=== PATIENT | male | born 1975 | race Caucasian/White ===

== ENCOUNTER 2018-10-16 16:11 | Inpatient (IN) ==
[2018-10-16] MEDS ORDERED: Aspirin 325 MG TABLET PO ONE (16:32)
[2018-10-16] MEDS ORDERED: *HR* LORazepam 2 MG/ML VIAL IVP ONE (16:44)
--- NOTE | 2018-10-16 16:44 | Emergency Department Note ---
Disposition Clinical Impression: ST elevation myocardial infarction (STEMI) Qualifiers: Involved coronary artery: right coronary artery Qualified Code(s): I21.11 - ST elevation (STEMI) myocardial infarction involving right coronary artery Disposition: Admitted As Inpatient Condition: Fair Time of Disposition: 21:04 Chest Pain HPI - General Chief Complaint: ED Chest Pain Stated Complaint: CP Time Seen by Provider: 10/16/18 16:20 Source: patient, family Limitations: no limitations Vital Signs Reviewed: Yes Nursing Notes Reviewed: Yes - History of Present Illness HPI Narrative: 43-year-old male presents from home for evaluation of chest pain. Onset 1 AM. Intermittent. Last for approximately 15 minutes before spontaneously resolving. This occurs at rest as well as with light exertion. Patient describes a pinching sensation in the mid sternum as well as bilateral chest ward. He has never had similar symptoms area he notes that he does have a history of anxiety however, his anxiety feels different on different occasions and he cannot tie his symptoms today to feelings of prior panic attacks. PMH: Hypertension, anxiety. Habits: Occasional rare smoker; 3-4 cigarettes per week. No family history of CT intermediate phone numbers under the age of 65. ROS: Positive: As above Negative: Fevers, chills, nausea, vomiting, palpitations, shortness of breath, diaphoresis. Severity scale (1-10): 5 - Related Data Home Medications Medication Instructions Recorded Confirmed Metoprolol XL (24 HR) Succ [Toprol 50 mg PO DAILY 10/16/18 10/16/18 XL] Pantoprazole Sodium [Protonix] 40 mg PO DAILY 10/16/18 10/16/18 Allergies Allergy/AdvReac Type Severity Reaction Status Date / Time aspirin Allergy See Verified 10/16/18 16:15 Comments atenolol Allergy See Verified 10/16/18 16:15 Comments All systems ED: reviewed and negative except as stated. Review of Systems: As Per HPI Chest Pain PMH - Past Medical History Medical history: Reports: hypertension Psychiatric history: Reports: anxiety, panic disorder - Social History Smoking Status: Current some day smoker Alcohol use: Reports: occasionally Drug use: Reports: none Physical Exam Vital Signs Reviewed General: Patient is alert, oriented, and in no acute distress. Head: atraumatic, normocephalic Eye: normal appearance, PERRL, EOMI, no scleral icterus, no conjunctival injection. Xanthomas present on bilateral upper eyelids. ENT: mucous membranes moist, normal external ear exam Neck: normal inspection, trachea midline, full ROM Chest: normal inspection, symmetric chest rise Respiratory: Good respiratory effort. Bilateral breath sounds are clear without wheezing, crackles, or rhonchi. Cardiovascular: Tachycardic rate and regular rhythm. No clicks, rubs, gallops, or murmors. Normal heart sounds. No pedal edema. Abdomen: Bowel sounds present normoactive. Abdomen is soft, nondistended, and nontender. No guarding or rebound. Musculoskeletal: Spontaneously moving all extremities. Skin: warm, dry, intact. Neuro: GCS 15. Alert and oriented x4. Sensation light touch intact. Psych: Patient's affect is appropriate for situation. - General Limitations: no limitations General appearance: alert, in no apparent distress Course Course Narrative: We will perform chest pain workup. Initial EKG is concerning for possible ischemic changes. Will provide aspirin. Discussed with patient in detail the meaning of an EKG as well as cardiac enzymes and the need for continued observation. If needed, he is agreeable to admission to the hospital for chest pain rule out ACS. Serum hematology is clinically unremarkable. Serum chemistries returned with elevated troponin. STEMI alert called. 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 EKG #1 EKG dated 10/16/2018 at 16:22 interpreted as sinus tachycardia with a rate of 131. CT 135, QRS 107, QTC 460. Normal axis. Concerning for inferior lateral ST elevation with with precordial ST depression. No previous EKG for comparison. EKG #2 EKG #2 dated 10/16/2018 at 16:[address] elevation with precordial ST depression. EKG #3 EKG dated 10/16/2018 at 17:[address] elevation slightly higher than EKG #2 above. I discussed the above in detail with the patient and his bedside. They understand the need to go to [employer] Mechanic and had no additional questions or concerns at this time. Vital Signs Temperature 97.4 F L 10/16/18 16:15 Pulse Rate 130 10/16/18 16:15 Respiratory Rate 20 10/16/18 16:15 Blood Pressure 171/101 10/16/18 16:15 O2 Sat by Pulse Oximetry 98 10/16/18 16:15 Temperature 98.3 F 10/16/18 19:23 Pulse Rate 77 12/12/18 20:00 Respiratory Rate 16 10/16/18 20:00 Blood Pressure 102/64 10/16/18 20:00 O2 Sat by Pulse Oximetry 94 10/16/18 20:00 Oxygen Delivery Oxygen Delivery Room Air Chest Pain - Lab Data Result diagrams: 10/16/18 17:32 10/16/18 16:27 Lab Results 10/16/18 10/16/18 10/16/18 Range/Units 16:27 16:27 16:27 WBC 14.8 H (4.3-11.1) K/mcL RBC 4.88 (4.19-5.50) M/mcL Hgb 15.9 (12.9-16.9) g/dL Hct 47.1 (37.5-50.1) % MCV 96.5 (83.0-100.0) fL MCH 32.6 (28.0-33.3) pg MCHC 33.8 (31.6-35.5) g/dL RDW 12.1 (11.5-14.5) % Plt Count 371 (140-400) K/mcL MPV 8.9 L (9.4-12.4) fL Immature Gran % 0.3 (0-4) % Seg Neutrophils % 70.9 % Lymphocytes % 17.5 % Monocytes % 10.7 % Eosinophils % 0.3 % Basophils % 0.3 % Neutrophils # 10.5 H (1.6-8.9) K/mcL Lymphocytes # 2.6 (0.6-4.6) K/mcL Monocytes # 1.6 H (0.0-1.3) K/mcL Eosinophils # 0.0 (0.0-0.6) K/mcL Basophils # 0.0 (0.0-0.2) K/mcL PT 11.6 (9.4-12.1) Seconds INR 1.0 Heparin Anti-Xa, Unfract 0.04 L (0.30-0.70) IU/mL Sodium 135 L (136-145) mEq/L Potassium 3.8 (3.5-5.1) mEq/L Chloride 99 (98-107) mEq/L Carbon Dioxide 25 (23-29) mEq/L BUN 17 (6-20) mg/dL Creatinine 0.87 (0.70-1.30) mg/dL Est GFR ( Amer) > 60 (> 60) Est GFR (Non-Af Amer) > 60 (> 60) BUN/Creatinine Ratio 20 (6-26) Glucose 131 H (70-105) mg/dL Calculated Osmolality 283 (280-300) Calcium 10.0 (8.6-10.3) mg/dL Troponin I 10.34 H* (< 0.04) ng/mL 10/16/18 Range/Units 17:32 WBC 12.8 H (4.3-11.1) K/mcL RBC 4.75 (4.19-5.50) M/mcL Hgb 15.5 (12.9-16.9) g/dL Hct 45.7 (37.5-50.1) % MCV 96.2 (83.0-100.0) fL MCH 32.6 (28.0-33.3) pg MCHC 33.9 (31.6-35.5) g/dL RDW 11.9 (11.5-14.5) % Plt Count 346 (140-400) K/mcL MPV 9.2 L (9.4-12.4) fL Immature Gran % (0-4) % Seg Neutrophils % % Lymphocytes % % Monocytes % % Eosinophils % % Basophils % % Neutrophils # (1.6-8.9) K/mcL Lymphocytes # (0.6-4.6) K/mcL Monocytes # (0.0-1.3) K/mcL Eosinophils # (0.0-0.6) K/mcL Basophils # (0.0-0.2) K/mcL PT (9.4-12.1) Seconds INR Heparin Anti-Xa, Unfract (0.30-0.70) IU/mL Sodium (136-145) mEq/L Potassium (3.5-5.1) mEq/L Chloride (98-107) mEq/L Carbon Dioxide (23-29) mEq/L BUN (6-20) mg/dL Creatinine (0.70-1.30) mg/dL Est GFR ( Amer) (> 60) Est GFR (Non-Af Amer) (> 60) BUN/Creatinine Ratio (6-26) Glucose (70-105) mg/dL Calculated Osmolality (280-300) Calcium (8.6-10.3) mg/dL Troponin I (< 0.04) ng/mL Heart Score - Score History: Slightly Suspicious EKG: Significant ST-Depression Age: Less than 45 Risk Factors: Equal/Greater than 3 risk factor or history of atherosclerotic disease Troponin: Greater than 3x normal limit HEART Score Total: 6
[2018-10-16 16:46] LABS: Basophils % 0.3 %; Eosinophils % 0.3 %; Hematocrit 47.1 % (37.5-50.1); Hemoglobin 15.9 g/dL (12.9-16.9); Immature Granulocytes % 0.3 % (0-4); Lymphocytes # 2.6 K/mcL (0.6-4.6); Lymphocytes % 17.5 %; Mean Corpuscular HGB Conc 33.8 g/dL (31.6-35.5); Mean Corpuscular Hemoglobin 32.6 pg (28.0-33.3); Mean Corpuscular Volume 96.5 fL (83.0-100.0); Mean Platelet Volume 8.9 fL (9.4-12.4); Monocytes # 1.6 K/mcL (0.0-1.3); Monocytes % 10.7 %; Neutrophils # 10.5 K/mcL (1.6-8.9); Platelet Count 371 K/mcL (140-400); Red Blood Count 4.88 M/mcL (4.19-5.50); Red Cell Distribution Width 12.1 % (11.5-14.5); Segmented Neutrophils % 70.9 %
[2018-10-16 16:56] LABS: BUN/Creatinine Ratio 20 (6-26); Blood Urea Nitrogen 17 mg/dL (6-20); Carbon Dioxide 25 mEq/L (23-29); Chloride 99 mEq/L (98-107); Glucose 131 mg/dL (70-105); Osmolality,Calculated 283 (280-300); Potassium 3.8 mEq/L (3.5-5.1); Prothrombin Time 11.6 Seconds (9.4-12.1); Sodium 135 mEq/L (136-145); eGFR For Non-African Americans > 60 (> 60)
[2018-10-16 17:08] LABS: Troponin I 10.34 ng/mL (< 0.04)
[2018-10-16] MEDS ORDERED: *HR* Morphine 2 MG/ML SYRINGE IVP ONE (17:13)
--- NOTE | 2018-10-16 17:13 | Emergency Department Note ---
Disposition Clinical Impression: ST elevation myocardial infarction (STEMI) Qualifiers: Involved coronary artery: unspecified coronary artery Qualified Code(s): I21.3 - ST elevation (STEMI) myocardial infarction of unspecified site Disposition: Still a Patient Forms: ED Satisfaction Letter General Adult HPI - General Chief complaint: ED Chest Pain Stated complaint: CP Time Seen by Provider: 10/16/18 16:20 Source: patient, family Limitations: no limitations Nursing Notes Reviewed: Yes Vital Signs Reviewed: Yes - History of Present Illness HPI Narrative: Attestation note: Patient was seen with the emergency medicine resident/nurse practitioner/physician podiatric assistant/transitional resident/medical student: Dr. Alonso Enriquez I have personally performed a face to face evaluation on this patient. I have reviewed and agree with history and physical examination patient management and disposition. Briefly the salient points of the case are as follows: 43-year-old male intermittent smoker high blood pressure presents the ER with intermittent chest pain which feels like "pins and needles" across bilateral chest wall without radiation denies nausea or vomiting or shortness of breath. No prior history of CAD or stents. No family history. Patient an EKG which showed some ST elevation possibly in 2 and 3 however no reciprocal changes no old EKG available for comparison. We repeated one after about 2530 minutes was unchanged. Patient we just had a critical troponin come back at 10+ interventional cardiology is being paged this is either STEMI for a recent IA. Patient will get history gotten Plavix will be getting nitroglycerin and morphine. Providing 45 minutes critical care services to this patient with admission anticipated, possible Digital Program Manager disposition pending Pain Scale: 4 - Related Data Allergies Allergy/AdvReac Type Severity Reaction Status Date / Time aspirin Allergy See Verified 10/16/18 16:15 Comments atenolol Allergy See Verified 10/16/18 16:15 Comments Past Medical History - Past Medical History Medical history: Reports: hypertension Psychiatric history: Reports: anxiety, panic disorder - Social History Smoking Status: Current some day smoker Smokeless Tobacco Status: No Alcohol use: Reports: occasionally Drug use: Reports: none Physical Exam - General Limitations: no limitations General appearance: alert, in no apparent distress Course Vital Signs Temperature 97.4 F L 10/16/18 16:15 Pulse Rate 130 10/16/18 16:15 Respiratory Rate 20 10/16/18 16:15 Blood Pressure 171/101 10/16/18 16:15 O2 Sat by Pulse Oximetry 98 10/16/18 16:15 Temperature 97.4 F L 10/16/18 16:20 Pulse Rate 126 10/16/18 16:59 Respiratory Rate 21 10/16/18 16:59 Blood Pressure 165/96 10/16/18 16:59 O2 Sat by Pulse Oximetry 96 10/16/18 16:59 Oxygen Delivery Oxygen Delivery Room Air Medical Decision Making - Lab Data Result diagrams: 10/16/18 16:27 10/16/18 16:27 Lab Results 10/16/18 10/16/18 10/16/18 Range/Units 16:27 16:27 16:27 WBC 14.8 H (4.3-11.1) K/mcL RBC 4.88 (4.19-5.50) M/mcL Hgb 15.9 (12.9-16.9) g/dL Hct 47.1 (37.5-50.1) % MCV 96.5 (83.0-100.0) fL MCH 32.6 (28.0-33.3) pg MCHC 33.8 (31.6-35.5) g/dL RDW 12.1 (11.5-14.5) % Plt Count 371 (140-400) K/mcL MPV 8.9 L (9.4-12.4) fL Immature Gran % 0.3 (0-4) % Seg Neutrophils % 70.9 % Lymphocytes % 17.5 % Monocytes % 10.7 % Eosinophils % 0.3 % Basophils % 0.3 % Neutrophils # 10.5 H (1.6-8.9) K/mcL Lymphocytes # 2.6 (0.6-4.6) K/mcL Monocytes # 1.6 H (0.0-1.3) K/mcL Eosinophils # 0.0 (0.0-0.6) K/mcL Basophils # 0.0 (0.0-0.2) K/mcL PT 11.6 (9.4-12.1) Seconds INR 1.0 Sodium 135 L (136-145) mEq/L Potassium 3.8 (3.5-5.1) mEq/L Chloride 99 (98-107) mEq/L Carbon Dioxide 25 (23-29) mEq/L BUN 17 (6-20) mg/dL Creatinine 0.87 (0.70-1.30) mg/dL Est GFR ( Amer) > 60 (> 60) Est GFR (Non-Af Amer) > 60 (> 60) BUN/Creatinine Ratio 20 (6-26) Glucose 131 H (70-105) mg/dL Calculated Osmolality 283 (280-300) Calcium 10.0 (8.6-10.3) mg/dL Troponin I 10.34 H* (< 0.04) ng/mL
[2018-10-16] MEDS ORDERED: *HR* Heparin 5,000 UNIT/ML VIAL IVP PRN ×2 (17:19)
[2018-10-16] MEDS ORDERED: *HR* Heparin 5,000 UNIT/ML VIAL IVP ONE (17:19)
[2018-10-16] MEDS ORDERED: Heparin 25,000 UNIT/500 ML D5W 25,000 UNIT/500 ML BAG IVC ONE (17:25)
[2018-10-16 17:28] LABS: Heparin anti-factor XA UFH 0.04 IU/mL (0.30-0.70)
[2018-10-16] MEDS ORDERED: Heparin 25,000 UNIT/500 ML D5W 25,000 UNIT/500 ML BAG IVC SCH (17:30)
[2018-10-16] MEDS: Nitroglycerin 0.4 MG TAB.SUBL SL PRN ×4 (17:44→19:41)
[2018-10-16 17:47] LABS: Hematocrit 45.7 % (37.5-50.1); Hemoglobin 15.5 g/dL (12.9-16.9); Mean Corpuscular HGB Conc 33.9 g/dL (31.6-35.5); Mean Corpuscular Hemoglobin 32.6 pg (28.0-33.3); Mean Corpuscular Volume 96.2 fL (83.0-100.0); Mean Platelet Volume 9.2 fL (9.4-12.4); Platelet Count 346 K/mcL (140-400); Red Blood Count 4.75 M/mcL (4.19-5.50); Red Cell Distribution Width 11.9 % (11.5-14.5)
[2018-10-16] MEDS ORDERED: *HR* Heparin 10,000 UNIT/10 ML VIAL ONE (18:09)
[2018-10-16] MEDS ORDERED: Heparin 1,000 UNITS/500 mL 500 ML ONE (18:09)
[2018-10-16] MEDS ORDERED: 0.9 % Sodium Chloride 1,000 ML ONE (18:09)
[2018-10-16] MEDS ORDERED: Nitroglycerin 1,000 MCG/10 ML VIAL IV ONE (18:09)
[2018-10-16] MEDS ORDERED: ISOVUE-370 200 ML INFUS..BTL ONE ×2 (18:09→18:33)
[2018-10-16] MEDS ORDERED: *HR* Atropine Sulfate 1 MG/10 ML SYRINGE ONE ×2 (18:49→21:04)
--- NOTE | 2018-10-16 19:23 | Invasive Diagnostic Lab Proc ---
Name: Keaton Diego Date of Study: 10/16/2018 Date: 1975 Ht: 66.0in Medical Record#: [id number] Age: 43 Wt: 249.12lb Gender: Male BSA: 2.2 Order #: [id number] BMI: 40.21 Physicians Procedure Physician: Anthony Riley DO Referring MD: Referring MD: Staff Name Position Time In Sites, Emani RT (R) Monitor 06:23 PM Roosevelt Treadwell RT (R) Scrub 06:23 PM Bryan Carlton RN Smoke Control Supervisor 06:23 PM Indications Indication STEMI Procedures Performed Procedure PRQ CARD REVASC MD 1 VSL L HRT ARTERY/VENTRICLE ANGIO Pre-Procedure Checklist Informed consent is complete signed and on chart. H&P is on chart. ID band is on and ID verified with patient. Patient NPO for procedure The procedure was described for the patient and questions were answered. Blood Pressure: 144/92 ECG is on chart. Rhythm: Sinus Tachycardia Plan of Care Patient will tolerate the procedure without complications. Adequate level of comfort will be maintained. Hemodynamics will remain stable Patient will recover from procedure without complications. Respiratory function will be maintained. Cardiac rhythm will remain stable. Patient temperature will be maintained. Patient and/or family have verbalized understanding of the procedure. Patient Education Chief Complaint/Reason for Test: Cardiac Cath Developmental Category: Adult (18-64 years) Developmentally Appropriate for Age: Yes Learning Barriers: None Education Needs: Procedure Education Method: Verbal Information Taught: Cardiac Cath Educational Evaluation: Able to repeat information Intravenous Access Time IV Size Location DC'd Fluid/Drip Rate Units RN 18g 1 1/" Patent On Arrival 18g 1 14" Patent On Arrival Allergies No Known Allergies aspirin atenolol Vital Signs Time BP (mmHg) HR (bpm) O2 Sat. RR (bpm) LOC 06:34 PM / % 5 = Fully awake and oriented or at pre-proc level 06:35 PM 144 / 92 121 100 % 17 06:39 PM 131 / 96 124 99 % 12 06:44 PM 138 / 93 122 99 % 12 06:49 PM 145 / 94 119 98 % 11 06:55 PM 96 / 48 63 97 % 11 06:57 PM 95 / 51 64 98 % 10 06:59 PM 103 / 49 62 97 % 8 07:05 PM 159 / 84 85 96 % 22 Procedural Medications Time Medication Dose Units Method Given By 06:31 PM Oxygen 2 L/min nasal cannula Bryan Carlton RN 06:34 PM Lidocaine 2% 10 ml Subcutaneous Anthony Riley DO 06:49 PM Heparin 3000 units Intravenous Bryan Carlton RN 06:55 PM Dopamine 5 mcg/kg/min Intravenous Bryan Carlton RN 06:58 PM Dopamine 10 mcg/kg/min Intravenous Bryan Carlton RN 06:58 PM 0.9NaCl 500 bolus Intravenous Bryan Carlton RN 07:04 PM Dopamine 5 mcg/kg/min Intravenous Bryan Carlton RN ASA Classification: Emergent Procedure: ASA score is assumed Mikie Score Preprocedure Postprocedure Activity 2- Moves 4 extremities sustained head lift Activity 2- Moves 4 extremities sustained head lift Circulation 2- SBP +/= 20 points of pre-anesthetic level Circulation 2- SBP +/= 20 points of pre-anesthetic level Consciousness 2- Awake and alert oriented x 3 Consciousness 2- Awake and alert oriented x 3 O2 Saturation 2- Able to maintain O2 satruation of 92% on room air O2 Saturation 2- Able to maintain O2 satruation of 92% on room air Respiratory 2- Able to deep breathe and cough well Respiratory 2- Able to deep breathe and cough well Total Score 10 Total Score 10 Contrast Agent: Isovue Diagnostic Contrast: 100 ml Total Contrast: 100 ml Fluoro Dose: 6799 mGy Activated Clotting Time Time Seconds to Clot 06:40 PM 173 07:04 PM 374 Procedure Log Time Note Enter By 06:23 PM Andrew, Emani RT (R) Position: Monitor Time in: 18:23 tsites 06:23 PM Roosevelt Treadwell RT (R) Position: Scrub Time in: 18:23 tsites 06:24 PM Bryan Carlton RN Position: Smoke Control Supervisor Time in: 18:23 tsites 06:24 PM Patient charges- Angio tray pack, Navilyst 3mm J, Pulse Oximetry and ACIST tubing and transducer tsites 06:26 PM Pt arrived to laboratory asst 2 at 18:26 tsites 06:30 PM Recorded ECG: TK=635 Condition=Condition 1 06:30 PM CathStat 06:31 PM Case Delayed No tsites 06:31 PM Physician arrived 18:31 tsites 06:31 PM Procedure start 18:31 tsites 06:32 PM Time: 18:31 Oxygen on at 2 L/min per nasal cannula by Bryan Carlton RN tsites 06:32 PM Hair removed from procedure site in holding area using clippers. Bilateral groin prepped with Chloraprep by Emani Morales), then patient was draped. Skin intact. tsites 06:34 PM Time: 18:34 Patient comfortable and pain free: Yes tsites 06:34 PM Pressure channel 2 zeroed. 06:34 PM Vitals capture started with the following parameters, Patient=Adult, Interval=5 min, Initial Vynltlel=062 mmHg, Deflation Rate=5 mmHg, Cuff placed on Right Arm 06:34 PM Time: 18:34LOC: 5 = Fully awake and oriented or at pre-proc level tsites 06:34 PM Clinical Presentation: STEMI or equivalent tsites 06:34 PM Time out was performed according to hospital policy. Conscious sedation and anesthesia was achieved (see medication log with in this report above) tsites 06:34 PM Time: 18:34 10 ml Lidocaine 2% to right groin Subcutaneous Given by Anthony Riley DO tsites 06:34 PM Micro-Introducer Kit utilized for sheath placement tsites 06:34 PM Sheath exchanged for a 6 Fr 11 cm Terumo [place] sheath [id number] tsites 06:35 PM WH=376 bpm, USJP=107/92 mmhg, OxB2=139.0 %, Resp=17 B/min 06:38 PM ACT drawn tsites 06:39 PM LE=711 bpm, CJGT=220/96 mmhg, SpO2=99.0 %, Resp=12 B/min, EtCO2=33 mmHg 06:40 PM Recorded Pressure: Ao, EL=632, Condition=Condition 1 (Aorta) Ao -1/-1/-1 06:40 PM At 18:40 the ACT was 173 seconds. tsites 06:44 PM XL=579 bpm, CTXI=124/93 mmhg, SpO2=99.0 %, Resp=12 B/min, EtCO2=32 mmHg 06:45 PM 0.035 145cm Navilyst 3mmJ wire [id number] tsites 06:45 PM LCA angiography performed in multiple views. tsites 06:45 PM Recorded Pressure: Ao, ZD=686, Condition=Condition 1 (Aorta) Ao 114/73/91 06:45 PM 6Fr FL 4 catheter inserted over the wire DNC tsites 06:46 PM wire reinserted catheter removed tsites 06:46 PM 6Fr JR 4 [place] Bright-Tip guide catheter was used to cannulate the PCI vessel successfully. reused? No tsites 06:46 PM Inflation device was opened. tsites 06:47 PM Recorded Pressure: LV, NB=080, Condition=Condition 1 (Left Ventricle) LV 125/0/10 06:47 PM Recorded Pressure: LV, Ao, XO=709, Condition=Condition 1 (Left Ventricle) LV 129/-3/10, (Aorta) Ao 108/72/88 06:48 PM Recorded Pressure: Ao, TJ=156, Condition=Condition 1 (Aorta) Ao 120/83/99 06:48 PM RCA angiography performed in multiple views. tsites 06:48 PM Coronary Dominance: right tsites 06:48 PM Lesion found in Proximal RCA. Pre Stenosis: 100 Pre PANCHO Flow: 0: No Flow/No perfusion tsites 06:48 PM Right Coronary, Right Posterior Descending Arteries with Right Posterolateral and Acute Marginal branches with 100 % stenosis. If graft is supplying this area, 0 % stenosis tsites 06:49 PM Time: 18:49 Heparin 3000 units Intravenous Given by Bryan Carlton RN tsites 06:49 PM PCI Status Emergency tsites 06:49 PM .014 Stabilizer Extra Support 300cm guide wire across target lesion- successful. reused? No tsites 06:49 PM 3.0 mm x 15 mm Emerge Monorail balloon across target lesion- successful. reused? No tsites 06:49 PM UQ=564 bpm, JIWZ=016/94 mmhg, SpO2=98 %, Resp=11 B/min 06:50 PM Balloon inflated @ 12 maynor for 19 seconds tsites 06:53 PM Recorded Pressure: Ao, HR=61, Condition=Condition 1 (Aorta) Ao 72/46/55 06:54 PM Balloon catheter removed intact. tsites 06:54 PM 3.5mm x 24mm Cordis EluNIR drug-eluting stent across target lesion- successful Lot #[id number] tsites 06:55 PM HR=63 bpm, NIBP=96/48 mmhg, SpO2=97 %, Resp=11 B/min 06:55 PM Time: 18:55 Dopamine 5 mcg/kg/min Intravenous Given by Bryan Carlton RN tsites 06:56 PM Stent deployed @ 16 maynor for 19 seconds tsites 06:57 PM Stent delivery system removed intact. tsites 06:57 PM NIBP STAT measurement started. 06:57 PM HR=64 bpm, NIBP=95/51 mmhg, SpO2=98.0 %, Resp=10 B/min 06:58 PM Time: 18:58 Dopamine 10 mcg/kg/min Intravenous Given by Bryan Carlton RN Jackson pump tsites 06:58 PM Time: 18:58 0.9NaCl 500 bolus Intravenous Given by Bryan Carlton RN tsites 06:59 PM ACT drawn tsites 06:59 PM HR=62 bpm, NNXQ=978/49 mmhg, SpO2=97.0 %, Resp=8 B/min 07:01 PM Recorded Pressure: Ao, HR=65, Condition=Condition 1 (Aorta) Ao 104/60/75 07:02 PM Recorded ECG: HR=69 Condition=Condition 1 07:03 PM Guide wire removed intact. tsites 07:03 PM Recorded Pressure: Ao, HR=67, Condition=Condition 1 (Aorta) Ao 133/74/93 07:04 PM Time: 19:04 Dopamine 5 mcg/kg/min Intravenous Given by Bryan Carlton RN Jackson pump tsites 07:04 PM Guide catheter removed intact. tsites 07:04 PM At 19:04 the ACT was 374 seconds. tsites 07:05 PM HR=85 bpm, RSJB=674/84 mmhg, SpO2=96.0 %, Resp=22 B/min 07:05 PM Procedure completed at 19:05 10/16/2018 tsites 07:06 PM Sign out completed: Radiation Dose 621 mGy, 6799 cGy/cm2 Fluoro Time: 5.1 Isovue 370 - 200ml contrast 100 ml given by Anthony Riley DO. Complications: None. The patient was discharged out of the [facility] in stable condition. Cardiac Rehab Consult needed: YesConfirmed administered medications: Yes tsites 07:07 PM Isovue 370 - 200ml,1 Bottle(s) used. tsites 07:07 PM Sheath left in place to be pulled on floor/holding areaV+Pad tsites 07:07 PM Estimated Blood Loss: less than 20cc tsites 07:07 PM Post ECG NSR tsites 07:07 PM Post Blood Pressure 159/84 tsites 07:07 PM 19:07 Post Pulses Bilateral DP & PT 1+ tsites 07:07 PM Information taught Cardiac Cath and PCI tsites 07:07 PM Education needs Procedure, Plan of Care, and Responsibilities of Patient in Care tsites 07:07 PM Learning barriers :None tsites 07:07 PM Education Methods Verbal tsites 07:07 PM Education evaluation Able to repeat information tsites 07:07 PM Site status No bleeding/hematoma - Rt Groin as reported by Roosevelt Treadwell RT (R) at 19:07 tsites 07:08 PM Opsite applied tsites 07:08 PM Plavix, Effient or Brilinta given Yes tsites 07:09 PM Delay to floor No tsites 07:09 PM Patient out of room: 19:09 tsites 07:09 PM Family placed in consult room. tsites 07:09 PM Report given to samir FRIEDMAN Pt taken to ICU Room #3. 19:09 tsites 07:09 PM Lesion found in Mid LAD. Pre Stenosis: 70 Pre PANCHO Flow: 3: Complete and Brisk Flow/Perfusion tsites 07:10 PM Mid/Distal Left Anterior Descending Coronary Artery and diagonal branches with 70% stenosis. If graft is supplying this area, 0 % stenosis tsites Complications Complication None Hemodynamics Pressures Site Systolic/A Wave Diastolic/V Wave Mean AO -1 -1 -1 AO 114 73 91 LV 125 0 10 LV 129 -3 10 AO 108 72 88 AO 120 83 99 AO 72 46 55 AO 104 60 75 AO 133 74 93 Post Procedure Information Blood Pressure: 159/84 mmHg Rhythm: NSR Post procedural instructions were given Closure Device Time Device Success/Fail 10/16/2018 7:12:00 PM Manual Compression Site Checks Time Location Status Staff Sheath In? Note 07:07 PM Rt Groin No bleeding/hematoma Roosevelt Treadwell RT (R) Pulses Time Site Pre-Procedure Post-Procedure Note Bilateral DP & PT 1+ 7:07:00 PM Bilateral DP & PT 1+ Updated by Emani Morales RT (R) on 10/16/2018 7:17:13 PM Emani Morales RT electronically signed on 10/16/2018 7:17:41 PM with status of Final
--- NOTE | 2018-10-16 20:24 | Cardiology History & Physical ---
Date of Encounter: 10/16/18 Time of Encounter: 18:10 Assessment and Plan (1) ST elevation myocardial infarction (STEMI) Current Visit: Yes Status: Acute The assessment and plan as outlined above was discussed with the patient and/or family members who expressed understanding and agreement. All questions were answered. EKG shows acute inferior LA, with ongoing chest pain, recomend emergency LHC/Possible PCi, risks and benefits discussed, pt agrees to proceed. He has been given heparin and Plavix bolus, has true ASA allergy, will hold for now. Qualifiers: Involved coronary artery: right coronary artery Qualified Code(s): I21.11 - ST elevation (STEMI) myocardial infarction involving right coronary artery (2) Hypertension Current Visit: Yes Status: Acute The assessment and plan as outlined above was discussed with the patient and/or family members who expressed understanding and agreement. All questions were answered. Blood pressure adequately controlled on low dose metoprolol, will continue for now. Qualifiers: Hypertension type: essential hypertension Qualified Code(s): I10 - Essential (primary) hypertension (3) GERD (gastroesophageal reflux disease) Current Visit: Yes Status: Acute The assessment and plan as outlined above was discussed with the patient and/or family members who expressed understanding and agreement. All questions were answered. Pt reports mid epigastric burning has resolved on PPI Qualifiers: Esophagitis presence: without esophagitis Qualified Code(s): K21.9 - Gastro-esophageal reflux disease without esophagitis (4) Tobacco abuse Current Visit: Yes Status: Acute The assessment and plan as outlined above was discussed with the patient and/or family members who expressed understanding and agreement. All questions were answered. PT is smoking casually, will dc tobacco starting today. History of Present Illness Chief complaint: Chest pain HPI: H&P performed before procedure, documented post procedure to minimize time delay for acute diagnosis and interventioin Mr. Diego is a 43 year old male who presents with complaint of new onset chest pain, started as bilateral pins and needles, approximately 0100, associated with mild shortness of breath, lasted approximately fifteen minutes, 5/10 at most severe, resolved spontaneously, was able to go back to sleep. Pain came and went over next twelve hours, lasting ten to fifteen minutes, then reso lving. Pt reports thought he was getting pneumonia due to pain in both lateral chest ward, and shortness of breath which accompanied chest pain. He notes was not improving, felt more short of breath each time pain returned, and came to ER for further evaluation. At time of evaluation pt reports having 2/10 chest tightness, squeezing sensation from lateral chest wall to midline, is mildly short of breath, no nausea or diaphoresis. Pt admits to cardiac risk factors including hypertension, smoker, male gender, reports no previous cardiac eval. 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) Medications and Allergies Metoprolol XL (24 HR) Succ [Toprol XL] 50 mg PO DAILY 10/16/18 [History] Pantoprazole Sodium [Protonix] 40 mg PO DAILY 10/16/18 [History] Allergy/AdvReac Type Severity Reaction Status Date / Time aspirin Allergy See Verified 10/16/18 16:15 Comments atenolol Allergy See Verified 10/16/18 16:15 Comments All Systems Review: The remainder of the systems were reviewed and are negative - Cardiovascular Cardiovascular: as per HPI - Gastrointestinal Gastrointestinal: other (indigesetion) - Psychiatric Psychiatric: anxiety Physical Examination Vital Signs, Last 4 Hours Temp Pulse Resp BP Pulse Ox 10/16/18 19:23 98.3 F 78 16 118/72 94 10/16/18 18:09 96 17 117/86 96 10/16/18 17:55 119 17 121/80 95 10/16/18 17:47 136 18 142/96 95 10/16/18 17:38 17 117/86 10/16/18 17:25 133 20 163/102 98 10/16/18 16:59 126 21 165/96 96 10/16/18 16:27 132 22 166/105 97 10/16/18 16:20 97.4 F L 130 20 171/101 98 10/16/18 16:15 97.4 F L 130 20 171/101 98 General: Conversant, No Apparent Distress, Other (experiencing 2/10 chest pain on arrival to construction craft laborer) HEENT: Atraumatic, Normocephaly Neck: No JVD, Normal carotid pulses Cardiac: Reg Rate and Rhythm, Normal S1 and S2, No Murmur Lungs: Normal Breath Sounds, No Wheeze, Rales, Rhonchi Neuro: Alert and responsive, No focal deficits noted Abdomen: Soft, Non-Tender Skin: No rashes noted on visualized skin Musculoskeletal: No Chest Wall Tenderness Extremities: No Clubbing, No Cyanosis, No Edema, Normal Pulses Results 10/16/18 17:32 10/16/18 16:27 Lab Results 10/16/18 10/16/18 10/16/18 16:27 16:27 16:27 WBC 14.8 H Hgb 15.9 Hct 47.1 Plt Count 371 INR 1.0 Sodium 135 L Potassium 3.8 Chloride 99 Carbon Dioxide 25 BUN 17 Creatinine 0.87 Glucose 131 H Calcium 10.0 Troponin I 10.34 H* 10/16/18 17:32 WBC 12.8 H Hgb 15.5 Hct 45.7 Plt Count 346 INR Sodium Potassium Chloride Carbon Dioxide BUN Creatinine Glucose Calcium Troponin I - EKG Interpretation EKG results cardiology: personally reviewed (ekg 16:22, nsr, acute inf ST segment elevation LA ekg 16:53 NSR, acute inf ST segment elevation LA) - VTE Reasons for not Prescribing Prophylaxis: Not indicated-Anticoagulated or INR therapeutic
[2018-10-16] MEDS ORDERED: Ondansetron 4 MG/2 ML VIAL IVP PRN (20:25)
[2018-10-16] MEDS: 0.9 % Sodium Chloride 1,000 ML IVC SCH (20:49)
[2018-10-16] MEDS: *HR* Morphine 2 MG/ML SYRINGE IVP PRN (20:49)
[2018-10-17 04:17] LABS: Basophils % 0.4 %; Eosinophils # 0.1 K/mcL (0.0-0.6); Eosinophils % 0.9 %; Immature Granulocytes % 0.3 % (0-4); Lymphocytes # 2.6 K/mcL (0.6-4.6); Lymphocytes % 25.9 %; Mean Corpuscular HGB Conc 32.8 g/dL (31.6-35.5); Mean Corpuscular Hemoglobin 32.1 pg (28.0-33.3); Mean Platelet Volume 8.9 fL (9.4-12.4); Monocytes # 1.3 K/mcL (0.0-1.3); Monocytes % 12.9 %; Platelet Count 261 K/mcL (140-400); Red Blood Count 4.08 M/mcL (4.19-5.50); Red Cell Distribution Width 12.3 % (11.5-14.5); Segmented Neutrophils % 59.6 %
[2018-10-17 04:18] LABS: BUN/Creatinine Ratio 22 (6-26); Blood Urea Nitrogen 16 mg/dL (6-20); Calcium 8.5 mg/dL (8.6-10.3); Carbon Dioxide 24 mEq/L (23-29); Chloride 105 mEq/L (98-107); Glucose 117 mg/dL (70-105); Osmolality,Calculated 284 (280-300); Potassium 4.1 mEq/L (3.5-5.1); Sodium 136 mEq/L (136-145); eGFR For Non-African Americans > 60 (> 60)
[2018-10-17 04:19] LABS: Hemoglobin 13.1 g/dL (12.9-16.9)
[2018-10-17] MEDS: *HR* Morphine 2 MG/ML SYRINGE IVP PRN ×2 (04:34→12:21)
[2018-10-17] MEDS: 0.9 % Sodium Chloride 1,000 ML IVC SCH (09:21)
--- NOTE | 2018-10-17 10:05 | Cardiology Progress Note ---
Date of Encounter: 10/17/18 Time of Encounter: 09:40 Assessment and Plan (1) ST elevation myocardial infarction (STEMI) Current Visit: Yes Status: Acute Presented with acute inferior STEMI per ECG on 10/16/18. Troponin 10.34. Chest pain symptoms: chest "pinching," associated with right shoulder discomfort, and indigestion. Emergently taken to the optical laboratory technician on 10/16/18 and is s/p PCI to 100% pRCA, culprit lesion. Has existing lesions, will likely need to be staged in the outpatient setting, final report pending. TTE: pending. Vitals, telemetry, and labs stable overnight. Denies recurrent chest pain. Hx of aspirin allergy (hives); reports occurred ~ 4 years ago with recurrence of hives when taking [place]. Reports had taken aspirin previously, "on and off" for years. Consulted Dr. Collado for asa desensitization. Hold BB fow now until desensitization completed. Continue plavix and statin. Cardiac rehab consulted. Will need to remain in ICU for now. Qualifiers: Involved coronary artery: right coronary artery Qualified Code(s): I21.11 - ST elevation (STEMI) myocardial infarction involving right coronary artery (2) Hypertension Current Visit: Yes Status: Acute Controlled, continue to monitor for now. Plan to resume BB prior to d/c. Qualifiers: Hypertension type: essential hypertension Qualified Code(s): I10 - Essential (primary) hypertension (3) GERD (gastroesophageal reflux disease) Current Visit: Yes Status: Acute On protonix at home. Qualifiers: Esophagitis presence: without esophagitis Qualified Code(s): K21.9 - Gastro-esophageal reflux disease without esophagitis (4) Tobacco abuse Current Visit: Yes Status: Acute Smoking cessation counseling provided. . (5) Aspirin allergy Current Visit: Yes Status: Acute As above. Consulted Allergy--Dr. Collado for asa desensitization as inpatient while in ICU. Ideally, will need DAPT (asa + plavix) for a minimum of 1 year. Will likely required staged PCI in the outpatient setting. Discussion w patient/family: The assessment and plan as outlined above was discussed with the patient and/or family members who expressed understanding and agreement. All questions were answered. Thank you for involving us in the care of your patient. Please call with any questions. The patient will be discussed and reviewed with Dr. James Mancia; changes to be made accordingly. Subjective Principal diagnosis: Inferior STEMI Interval history: Seen and examined. No recurrent chest pain overnight (reports angina: right shoulder discomfort, "pinching" chest pain, indigestion). Reports fatigue this AM. Hx of asa allergy--reports hives x4 years ago with aspirin. No issues with right groin cath access site. Objective Vital Signs, Last 4 Hours Temp Pulse Resp BP Pulse Ox 10/17/18 08:00 99 16 109/69 96 10/17/18 07:15 97.6 F 10/17/18 07:00 72 16 121/91 96 General: Conversant, No Apparent Distress, Other (obese) HEENT: Atraumatic, Normocephaly, Mucus Membranes Moist Cardiac: Reg Rate and Rhythm, Normal S1 and S2 Lungs: Normal Breath Sounds Neuro: Alert and responsive Abdomen: Soft Skin: No rashes noted on visualized skin Musculoskeletal: No Chest Wall Tenderness Extremities: No Edema, Normal Pulses Other: right groin: dressing C/D/I. No hematoma, bruising, or bleeding noted. +2 DP/PT pulses. Results 10/17/18 03:45 10/17/18 03:45 Lab Results 10/16/18 10/16/18 10/16/18 16:27 16:27 16:27 WBC 14.8 H Hgb 15.9 Hct 47.1 Plt Count 371 INR 1.0 Sodium 135 L Potassium 3.8 Chloride 99 Carbon Dioxide 25 BUN 17 Creatinine 0.87 Glucose 131 H Calcium 10.0 Troponin I 10.34 H* 10/16/18 10/17/18 10/17/18 17:32 03:45 03:45 WBC 12.8 H 10.0 Hgb 15.5 13.1 D Hct 45.7 40.0 Plt Count 346 261 INR Sodium 136 Potassium 4.1 Chloride 105 Carbon Dioxide 24 BUN 16 Creatinine 0.73 Glucose 117 H Calcium 8.5 L Troponin I Active Medications Atorvastatin Calcium (Lipitor) 40 mg PO HS DIANA Stop: 04/17/19 21:01 Last Admin: 10/16/18 20:50 Dose: 40 mg Clopidogrel Bisulfate (Plavix) 75 mg PO DAILY DIANA Stop: 04/18/19 09:01 Last Admin: 10/17/18 07:51 Dose: 75 mg Sodium Chloride (0.9 % Sodium Chloride) 1,000 mls @ 100 mls/hr IVC .Q10H DIANA Stop: 04/17/19 20:01 Last Admin: 10/16/18 20:49 Dose: 100 mls/hr Morphine Sulfate (Morphine Sulfate) 2 mg IVP Q3H PRN; Protocol PRN Reason: CHEST PAIN Stop: 04/17/19 20:26 Last Admin: 10/17/18 04:34 Dose: 2 mg Nitroglycerin (Nitroglycerin) 0.4 mg SL Q5MIN PRN PRN Reason: Chest Pain Stop: 04/17/19 17:14 Last Admin: 10/16/18 19:41 Dose: 0.4 mg Ondansetron HCl (Zofran) 4 mg IVP Q6HR PRN; Protocol PRN Reason: Nausea Stop: 04/17/19 20:26 Last Admin: 10/16/18 20:49 Dose: 4 mg - Imaging and Cardiology Echo: pending Cardiac cath: pending, other (discussed with Dr. Riley) Other Results: 12 hour tele: avg HR=81 SR. - EKG Interpretation EKG results cardiology: personally reviewed - VTE Reasons for not Prescribing Prophylaxis: Not indicated-Anticoagulated or INR therapeutic Consult Discharge Plan - Plan Referrals: Nikhil Barraza, INTERACTIVE DEVELOPER [Primary Care Provider] -
[2018-10-17] MEDS ORDERED: *HR* EPINEPHrine 1 MG/ML AMPUL IV PRN ×2 (11:07→15:34)
[2018-10-17] MEDS ORDERED: Aspirin 81 MG TAB.CHEW PO ONE (11:15)
[2018-10-17] MEDS ORDERED: methylPREDNISolone 125 MG/2 ML VIAL IVP PRN ×2 (11:15→15:34)
[2018-10-17] MEDS ORDERED: *HR* EPINEPHrine 1 MG/ML AMPUL IM PRN ×2 (11:15→15:34)
[2018-10-17] MEDS ORDERED: Aspirin desensitization 1 mg/ml PO ONE ×3 (11:15)
[2018-10-17] MEDS ORDERED: Aspirin desensitization 4 mg/ml PO ONE ×4 (11:15)
[2018-10-17] MEDS ORDERED: Famotidine 20 MG/2 ML VIAL IVP PRN ×2 (11:15→15:34)
[2018-10-17] MEDS ORDERED: Ipratropium/Albuterol Neb 3 ML ONE (11:30)
--- NOTE | 2018-10-17 13:43 | Electrocardiograph Report ---
[address] [place], [place] [address] Test Date: 2018-10-16 Pat Name: Keaton Diego Department: EXAM1 Room: 03 Gender: M Clearing Supervisor: : 1975 Requested By: Yan Potter Order Number: [id number] Reading MD: Sangeeta Lee Measurements Intervals [place] Rate: 131 P: 42 HI: 135 QRS: 220 QRSD: 107 T: 71 QT: 311 QTc: 460 Interpretive Statements Sinus tachycardia ACUTE STEMI Acute inferior infarct with posterior wall involvement, cannot rule out RV infarct Electronically Signed On 10-17-2018 13:42:04 EST by Sangeeta Lee
--- NOTE | 2018-10-17 13:46 | Electrocardiograph Report ---
[address] [place], [place] [address] Test Date: 2018-10-16 Pat Name: Keaton Diego Department: EXAM1 Room: [facility] Gender: M Pharmacy Technologist: : 1975 Requested By: Yan Potter Order Number: [id number] Reading MD: Sangeeta Lee Measurements Intervals [place] Rate: 124 P: 63 NH: 147 QRS: 263 QRSD: 108 T: 43 QT: 316 QTc: 454 Interpretive Statements Sinus tachycardia Acute inferior infarct extending to posterior wall Electronically Signed On 10-17-2018 13:44:51 EST by Sangeeta Lee
--- NOTE | 2018-10-17 13:48 | Electrocardiograph Report ---
[address] [place], [place] [address] Test Date: 2018-10-16 Pat Name: Keaton Diego Department: EXAM1 Room: [facility] Gender: M Prevention Specialist: : 1975 Requested By: Alonso Enriquez Order Number: [id number] Reading MD: Sangeeta Lee Measurements Intervals [place] Rate: 118 P: 72 MI: 145 QRS: -77 QRSD: 108 T: 15 QT: 328 QTc: 460 Interpretive Statements Sinus tachycardia Acute inferior infarct extending to posterior wall Electronically Signed On 10-17-2018 13:46:43 EST by Sangeeta Lee
--- NOTE | 2018-10-17 13:58 | Electrocardiograph Report ---
[address] [place], [place] [address] Test Date: 2018-10-16 Pat Name: Keaton Diego Department: 112 Room: 03 Gender: M Ambulance Mechanic: : 1975 Requested By: Anthony Riley Order Number: [id number] Reading MD: Sangeeta Lee Measurements Intervals [place] Rate: 66 P: 29 NC: 124 QRS: -41 QRSD: 107 T: -29 QT: 382 QTc: 396 Interpretive Statements SINUS RHYTHM INFERIOR AND POSTERIOR MYOCARDIAL INFARCTION, PROBABLY RECENT ACUTE [place] Electronically Signed On 10-17-2018 13:57:13 EST by Sangeeta Lee
[2018-10-17] MEDS ORDERED: Nitroglycerin 0.4 MG TAB.SUBL SL PRN (15:34)
[2018-10-17] MEDS ORDERED: Ondansetron 4 MG/2 ML VIAL IVP PRN (15:34)
[2018-10-17] MEDS ORDERED: *HR* Morphine 2 MG/ML SYRINGE IVP PRN (15:34)
--- NOTE | 2018-10-17 17:52 | Allergy Consult Note ---
Date of Encounter: 10/17/18 Time of Encounter: 10:00 Assessment and Plan (1) Adverse effect of other drugs, medicaments and biological substances, initial encounter Current Visit: Yes Status: Acute 43 year old male with history of aspirin allergy requiring aspirin desensitization per cardiology. 1. NPO 2. Hold beta cecil 3. Patient consented for aspirin desensitization 4. After desensitization he will need to take aspirin 81mg daily, if he goes l onger than 48 hours then he will need desensitized again. (2) Urticaria due to food allergy Current Visit: Yes Status: Acute Patient will get ingredient list of pizza and follow up in my clinic for testing. History of Present Illness Consult date: 10/17/18 Reason for consult: Drug allergy Requesting physician: Genie Marie History of present illness: Patient is a 43 year old male who has a history of aspirin allergy. Patient had tolerated aspirin as an adult but 5 years ago he had severe hives over his whole body. He was itchy but did not have any difficulty breathing, vomiting or diarrhea. He took benadryl and the symptoms resolved. A month later he had aspirin again and he had hives again which resolved with benadryl. He has avoided aspirin since. He tolerates motrin. He has no history of asthma or COPD. He was admitted for chest pain and had heart catherization and stent yesterday. Patient also reports that after eating pizza at [employer] he has small urticaria. He can eat homemade pizza without issues. He eats pork frequently and beef twice a month without issues. Past Med Surg Social Fam HX - Past Medical History Medical history: hypertension Psychiatric history: anxiety, panic disorder - Past Surgical History Additional surgical history: eye surgery - Social History Smoking Status: Current some day smoker Smokeless Tobacco Status: No Alcohol use: occasionally Drug use: none Medications and Allergies Metoprolol XL (24 HR) Succ [Toprol XL] 50 mg PO DAILY 10/16/18 [History] Pantoprazole Sodium [Protonix] 40 mg PO DAILY 10/16/18 [History] Allergy/AdvReac Type Severity Reaction Status Date / Time atenolol Allergy Mild Hives Verified 10/17/18 15:33 ROS Allergy - Constitutional Constitutional ROS: no headache(s) - EENT Nose, mouth and throat: no lip swelling, no throat swelling, no tongue swelling - Cardiovascular Cardiovascular ROS IM: no chest pain - Respiratory no wheezing - Gastrointestinal Gastrointestinal: no diarrhea, no vomiting - Musculoskeletal Musculoskeletal ROS: no muscle weakness - Integumentary Integumentary: no rash - Allergic/Immunologic no tongue swelling, no throat swelling, no uticaria, no wheezing Allergy Exam Initial Vital Signs Temp Pulse Resp BP Pulse Ox 97.4 F L 130 20 171/101 98 10/16/18 16:15 10/16/18 16:15 10/16/18 16:15 10/16/18 16:15 10/16/18 16:15 - General physical appearance well nourished, no distress - Eyes other (no erythema) - ENT normal nares, normal mucosa, no congestion - Neck no lymphadectomy - Respiratory normal expansion, normal respiratory effort, clear to auscultation - Abdomen Abdomen: non tender - Integumentary no rash - Additional Findings Heart-RRR Results - Labs 10/17/18 03:45 10/17/18 03:45 Abnormal lab results RBC 4.08 M/mcL (4.19-5.50) L 10/17/18 03:45 MPV 8.9 fL (9.4-12.4) L 10/17/18 03:45 Heparin Anti-Xa, Unfract 0.04 IU/mL (0.30-0.70) L 10/16/18 16:27 Glucose 117 mg/dL (70-105) H 10/17/18 03:45 POC Glucose 124 mg/dL (70-99) H 10/16/18 19:27 Calcium 8.5 mg/dL (8.6-10.3) L 10/17/18 03:45 Troponin I 10.34 ng/mL (< 0.04) H* 10/16/18 16:27 Diabetes panel 10/17/18 Range/Units 03:45 Sodium 136 (136-145) mEq/L Potassium 4.1 (3.5-5.1) mEq/L Chloride 105 (98-107) mEq/L Carbon Dioxide 24 (23-29) mEq/L BUN 16 (6-20) mg/dL Creatinine 0.73 (0.70-1.30) mg/dL Glucose 117 H (70-105) mg/dL Calcium 8.5 L (8.6-10.3) mg/dL Calcium panel 10/17/18 Range/Units 03:45 Calcium 8.5 L (8.6-10.3) mg/dL Pituitary panel 10/17/18 Range/Units 03:45 Sodium 136 (136-145) mEq/L Potassium 4.1 (3.5-5.1) mEq/L Chloride 105 (98-107) mEq/L Carbon Dioxide 24 (23-29) mEq/L BUN 16 (6-20) mg/dL Creatinine 0.73 (0.70-1.30) mg/dL Glucose 117 H (70-105) mg/dL Calcium 8.5 L (8.6-10.3) mg/dL Adrenal panel 10/17/18 Range/Units 03:45 Sodium 136 (136-145) mEq/L Potassium 4.1 (3.5-5.1) mEq/L Chloride 105 (98-107) mEq/L Carbon Dioxide 24 (23-29) mEq/L BUN 16 (6-20) mg/dL Creatinine 0.73 (0.70-1.30) mg/dL Glucose 117 H (70-105) mg/dL Calcium 8.5 L (8.6-10.3) mg/dL All other labs normal. Consult Discharge Plan - Plan Referrals: Nikhil Barraza, FIG BAR MACHINE OPERATOR [Primary Care Provider] -
--- NOTE | 2018-10-17 18:07 | Allergy Procedure Note ---
Date of procedure: 10/17/18 Pre-op diagnosis: Adverse effect of drug, medicament, or biological substance- aspirin Post-op diagnosis: same Procedure: Aspirin Desensitization Patient with history of aspirin allergy. See consult note for HPI details. I discussed risk and benefits with patient. I explained to patient the risk of an allergic reaction including itching, hives, swelling, airway closure, diarrhea, vomiting, drop in blood pressure, heart attack, or . I have explained that he is at increased risk due to his recent NC and recent beta cecil use. Written consent obtained. He has stopped his beta cecil for 24 hours prior to procedure. Epinephrine, solumedrol, benadryl and pepcid at bedside. Dose 1- 0.1mg aspirin given PO, patient observed closely x 15 minutes, exam unchanged, patient denies any new complaints, vitals unchanged(see vitals recorded under vitals section) Dose 2- 0.3mg aspirin given PO, patient observed closely x 15 minutes, exam unchanged, patient denies any new complaints, vitals unchanged(see vitals recorded under vitals section) Dose 3- 1mg aspirin given PO, patient observed closely x 15 minutes, exam unchanged, patient denies any new complaints, vitals unchanged(see vitals recorded under vitals section) Dose 4- 3mg aspirin given PO, patient observed closely x 15 minutes, exam unchanged, patient denies any new complaints, vitals unchanged(see vitals recorded under vitals section) Dose 5-10mg aspirin given PO, patient observed closely x 15 minutes, exam unchanged, patient denies any new complaints, vitals unchanged(see vitals recorded under vitals section) Dose 6-20mgmg aspirin given PO, patient observed closely x 15 minutes, exam unchanged, patient denies any new complaints, vitals unchanged(see vitals recorded under vitals section) Dose 7-40mg aspirin given PO, patient observed closely x 15 minutes, exam unchanged, patient denies any new complaints, vitals unchanged(see vitals recorded under vitals section) Dose 8-81mg aspirin given PO, patient observed closely x 60 minutes, exam unchanged, patient denies any new complaints, vitals unchanged(see vitals recorded under vitals section) Patient has tolerated the procedure well. He is desensitized to aspirin. He should take 81mg daily. If he goes longer than 48 hours without aspirin he should then not take it and would need the procedure again. Total time spent with patient 3hours Anesthesia: none Was there an mailing machine assistant present: Yes Exceptional [employer] Teacher: Maira Carroll Condition: stable
[2018-10-17] MEDS ORDERED: *HR* LORazepam 2 MG/ML VIAL IVP ONE (21:54)
[2018-10-18 03:30] LABS: Basophils % 0.5 %; Eosinophils # 0.2 K/mcL (0.0-0.6); Eosinophils % 1.9 %; Hematocrit 41.1 % (37.5-50.1); Hemoglobin 13.6 g/dL (12.9-16.9); Immature Granulocytes % 0.4 % (0-4); Lymphocytes # 2.7 K/mcL (0.6-4.6); Lymphocytes % 33.7 %; Mean Corpuscular HGB Conc 33.1 g/dL (31.6-35.5); Mean Corpuscular Hemoglobin 32.6 pg (28.0-33.3); Mean Corpuscular Volume 98.6 fL (83.0-100.0); Mean Platelet Volume 8.9 fL (9.4-12.4); Monocytes # 0.8 K/mcL (0.0-1.3); Monocytes % 9.3 %; Neutrophils # 4.4 K/mcL (1.6-8.9); Platelet Count 260 K/mcL (140-400); Red Blood Count 4.17 M/mcL (4.19-5.50); Red Cell Distribution Width 11.9 % (11.5-14.5); Segmented Neutrophils % 54.2 %
[2018-10-18 03:46] LABS: BUN/Creatinine Ratio 22 (6-26); Blood Urea Nitrogen 14 mg/dL (6-20); Calcium 8.6 mg/dL (8.6-10.3); Carbon Dioxide 24 mEq/L (23-29); Chloride 105 mEq/L (98-107); Chol/HDL Ratio 5.8 (0-4.9); Glucose 109 mg/dL (70-105); Magnesium 2.2 mg/dL (1.6-2.6); Osmolality,Calculated 287 (280-300); Potassium 4.2 mEq/L (3.5-5.1); Sodium 138 mEq/L (136-145); eGFR For Non-African Americans > 60 (> 60)
--- NOTE | 2018-10-18 08:28 | Invasive Diagnostic Lab Proc ---
Name: Keaton Diego Date of Study: 10/16/2018 Date: 1975 Ht: 66.0in Medical Record#: [id number] Age: 43 Wt: 249.12lb Gender: Male BSA: 2.2 Order #: [id number] BMI: 40.21 Physicians Procedure Physician: Anthony Riley DO Referring MD: Referring MD: Staff Name Position Time In Sites, Emani RT (R) Monitor 06:23 PM Roosevelt Treadwell RT (R) Scrub 06:23 PM Bryan Carlton RN Automotive Design Drafter 06:23 PM Indications Indication STEMI Procedures Performed Procedure PRQ CARD REVASC AK 1 VSL L HRT ARTERY/VENTRICLE ANGIO Pre-Procedure Checklist Informed consent is complete signed and on chart. H&P is on chart. ID band is on and ID verified with patient. Patient NPO for procedure The procedure was described for the patient and questions were answered. Blood Pressure: 144/92 ECG is on chart. Rhythm: Sinus Tachycardia Plan of Care Patient will tolerate the procedure without complications. Adequate level of comfort will be maintained. Hemodynamics will remain stable Patient will recover from procedure without complications. Respiratory function will be maintained. Cardiac rhythm will remain stable. Patient temperature will be maintained. Patient and/or family have verbalized understanding of the procedure. Patient Education Chief Complaint/Reason for Test: Cardiac Cath Developmental Category: Adult (18-64 years) Developmentally Appropriate for Age: Yes Learning Barriers: None Education Needs: Procedure Education Method: Verbal Information Taught: Cardiac Cath Educational Evaluation: Able to repeat information Intravenous Access Time IV Size Location DC'd Fluid/Drip Rate Units RN 18g 1 1/" Patent On Arrival 18g 1 14" Patent On Arrival Allergies No Known Allergies aspirin atenolol Vital Signs Time BP (mmHg) HR (bpm) O2 Sat. RR (bpm) LOC 06:34 PM / % 5 = Fully awake and oriented or at pre-proc level 06:35 PM 144 / 92 121 100 % 17 06:39 PM 131 / 96 124 99 % 12 06:44 PM 138 / 93 122 99 % 12 06:49 PM 145 / 94 119 98 % 11 06:55 PM 96 / 48 63 97 % 11 06:57 PM 95 / 51 64 98 % 10 06:59 PM 103 / 49 62 97 % 8 07:05 PM 159 / 84 85 96 % 22 Procedural Medications Time Medication Dose Units Method Given By 06:31 PM Oxygen 2 L/min nasal cannula Bryan Carlton RN 06:34 PM Lidocaine 2% 10 ml Subcutaneous Anthony Riley DO 06:49 PM Heparin 3000 units Intravenous Bryan Carlton RN 06:55 PM Dopamine 5 mcg/kg/min Intravenous Bryan Carlton RN 06:58 PM Dopamine 10 mcg/kg/min Intravenous Bryan Carlton RN 06:58 PM 0.9NaCl 500 bolus Intravenous Bryan Carlton RN 07:04 PM Dopamine 5 mcg/kg/min Intravenous Bryan Carlton RN ASA Classification: Emergent Procedure: ASA score is assumed Mikie Score Preprocedure Postprocedure Activity 2- Moves 4 extremities sustained head lift Activity 2- Moves 4 extremities sustained head lift Circulation 2- SBP +/= 20 points of pre-anesthetic level Circulation 2- SBP +/= 20 points of pre-anesthetic level Consciousness 2- Awake and alert oriented x 3 Consciousness 2- Awake and alert oriented x 3 O2 Saturation 2- Able to maintain O2 satruation of 92% on room air O2 Saturation 2- Able to maintain O2 satruation of 92% on room air Respiratory 2- Able to deep breathe and cough well Respiratory 2- Able to deep breathe and cough well Total Score 10 Total Score 10 Contrast Agent: Isovue Diagnostic Contrast: 100 ml Total Contrast: 100 ml Fluoro Dose: 6799 mGy Activated Clotting Time Time Seconds to Clot 06:40 PM 173 07:04 PM 374 Procedure Log Time Note Enter By 06:23 PM Andrew, Emani RT (R) Position: Monitor Time in: 18:23 tsites 06:23 PM Roosevelt Treadwell RT (R) Position: Scrub Time in: 18:23 tsites 06:24 PM Bryan Carlton RN Position: Automotive Design Drafter Time in: 18:23 tsites 06:24 PM Patient charges- Angio tray pack, Navilyst 3mm J, Pulse Oximetry and ACIST tubing and transducer tsites 06:26 PM Pt arrived to tree tapping laborer 2 at 18:26 tsites 06:30 PM Recorded ECG: VP=388 Condition=Condition 1 06:30 PM CathStat 06:31 PM Case Delayed No tsites 06:31 PM Physician arrived 18:31 tsites 06:31 PM Procedure start 18:31 tsites 06:32 PM Time: 18:31 Oxygen on at 2 L/min per nasal cannula by Bryan Carlton RN tsites 06:32 PM Hair removed from procedure site in holding area using clippers. Bilateral groin prepped with Chloraprep by Emani Morales), then patient was draped. Skin intact. tsites 06:34 PM Time: 18:34 Patient comfortable and pain free: Yes tsites 06:34 PM Pressure channel 2 zeroed. 06:34 PM Vitals capture started with the following parameters, Patient=Adult, Interval=5 min, Initial Zvivcxpi=015 mmHg, Deflation Rate=5 mmHg, Cuff placed on Right Arm 06:34 PM Time: 18:34LOC: 5 = Fully awake and oriented or at pre-proc level tsites 06:34 PM Clinical Presentation: STEMI or equivalent tsites 06:34 PM Time out was performed according to hospital policy. Conscious sedation and anesthesia was achieved (see medication log with in this report above) tsites 06:34 PM Time: 18:34 10 ml Lidocaine 2% to right groin Subcutaneous Given by Anthony Riley DO tsites 06:34 PM Micro-Introducer Kit utilized for sheath placement tsites 06:34 PM Sheath exchanged for a 6 Fr 11 cm Terumo [place] sheath [id number] tsites 06:35 PM xray equipment malfunction. system reboot tsites 06:35 PM XT=977 bpm, VCWG=666/92 mmhg, TgF8=058.0 %, Resp=17 B/min 06:38 PM ACT drawn tsites 06:39 PM WV=554 bpm, VMVS=996/96 mmhg, SpO2=99.0 %, Resp=12 B/min, EtCO2=33 mmHg 06:40 PM Recorded Pressure: Ao, WN=439, Condition=Condition 1 (Aorta) Ao -1/-1/-1 06:40 PM At 18:40 the ACT was 173 seconds. tsites 06:44 PM LR=672 bpm, FUVK=245/93 mmhg, SpO2=99.0 %, Resp=12 B/min, EtCO2=32 mmHg 06:45 PM xray functioning properly . proceeding with procedure tsites 06:45 PM 0.035 145cm Navilyst 3mmJ wire [id number] tsites 06:45 PM LCA angiography performed in multiple views. tsites 06:45 PM Recorded Pressure: Ao, MI=687, Condition=Condition 1 (Aorta) Ao 114/73/91 06:45 PM 6Fr FL 4 catheter inserted over the wire [facility] tsites 06:46 PM wire reinserted catheter removed tsites 06:46 PM 6Fr JR 4 Dodge Bright-Tip guide catheter was used to cannulate the PCI vessel successfully. reused? No tsites 06:46 PM Inflation device was opened. tsites 06:47 PM Recorded Pressure: LV, AP=468, Condition=Condition 1 (Left Ventricle) LV 125/0/10 06:47 PM Recorded Pressure: LV, Ao, IQ=721, Condition=Condition 1 (Left Ventricle) LV 129/-3/10, (Aorta) Ao 108/72/88 06:48 PM Recorded Pressure: Ao, UQ=432, Condition=Condition 1 (Aorta) Ao 120/83/99 06:48 PM RCA angiography performed in multiple views. tsites 06:48 PM Coronary Dominance: right tsites 06:48 PM Lesion found in Proximal RCA. Pre Stenosis: 100 Pre PANCHO Flow: 0: No Flow/No perfusion tsites 06:48 PM Right Coronary, Right Posterior Descending Arteries with Right Posterolateral and Acute Marginal branches with 100 % stenosis. If graft is supplying this area, 0 % stenosis tsites 06:49 PM Time: 18:49 Heparin 3000 units Intravenous Given by Bryan Carlton RN tsites 06:49 PM PCI Status Emergency tsites 06:49 PM .014 Stabilizer Extra Support 300cm guide wire across target lesion- successful. reused? No tsites 06:49 PM 3.0 mm x 15 mm Emerge Monorail balloon across target lesion- successful. reused? No tsites 06:49 PM ER=468 bpm, KZVN=769/94 mmhg, SpO2=98 %, Resp=11 B/min 06:50 PM Balloon inflated @ 12 maynor for 19 seconds tsites 06:53 PM Recorded Pressure: Ao, HR=61, Condition=Condition 1 (Aorta) Ao 72/46/55 06:54 PM Balloon catheter removed intact. tsites 06:54 PM 3.5mm x 24mm Cordis EluNIR drug-eluting stent across target lesion- successful Lot #[id number] tsites 06:55 PM HR=63 bpm, NIBP=96/48 mmhg, SpO2=97 %, Resp=11 B/min 06:55 PM Time: 18:55 Dopamine 5 mcg/kg/min Intravenous Given by Bryan Carlton RN tsites 06:56 PM Stent deployed @ 16 maynor for 19 seconds tsites 06:57 PM Stent delivery system removed intact. tsites 06:57 PM NIBP STAT measurement started. 06:57 PM HR=64 bpm, NIBP=95/51 mmhg, SpO2=98.0 %, Resp=10 B/min 06:58 PM Time: 18:58 Dopamine 10 mcg/kg/min Intravenous Given by Bryan Carlton RN Jackson pump tsites 06:58 PM Time: 18:58 0.9NaCl 500 bolus Intravenous Given by Bryan Carlton RN tsites 06:59 PM ACT drawn tsites 06:59 PM HR=62 bpm, BVYB=783/49 mmhg, SpO2=97.0 %, Resp=8 B/min 07:01 PM Recorded Pressure: Ao, HR=65, Condition=Condition 1 (Aorta) Ao 104/60/75 07:02 PM Recorded ECG: HR=69 Condition=Condition 1 07:03 PM Guide wire removed intact. tsites 07:03 PM Recorded Pressure: Ao, HR=67, Condition=Condition 1 (Aorta) Ao 133/74/93 07:04 PM Time: 19:04 Dopamine 5 mcg/kg/min Intravenous Given by Bryan Carlton RN Jackson pump tsites 07:04 PM Guide catheter removed intact. tsites 07:04 PM At 19:04 the ACT was 374 seconds. tsites 07:05 PM HR=85 bpm, VPDA=488/84 mmhg, SpO2=96.0 %, Resp=22 B/min 07:05 PM Procedure completed at 19:05 10/16/2018 tsites 07:06 PM Sign out completed: Radiation Dose 621 mGy, 6799 cGy/cm2 Fluoro Time: 5.1 Isovue 370 - 200ml contrast 100 ml given by Anthony Riley DO. Complications: None. The patient was discharged out of the lab analyst in stable condition. Cardiac Rehab Consult needed: YesConfirmed administered medications: Yes tsites 07:07 PM Isovue 370 - 200ml,1 Bottle(s) used. tsites 07:07 PM Sheath left in place to be pulled on floor/holding areaV+Pad tsites 07:07 PM Estimated Blood Loss: less than 20cc tsites 07:07 PM Post ECG NSR tsites 07:07 PM Post Blood Pressure 159/84 tsites 07:07 PM 19:07 Post Pulses Bilateral DP & PT 1+ tsites 07:07 PM Information taught Cardiac Cath and PCI tsites 07:07 PM Education needs Procedure, Plan of Care, and Responsibilities of Patient in Care tsites 07:07 PM Learning barriers :None tsites 07:07 PM Education Methods Verbal tsites 07:07 PM Education evaluation Able to repeat information tsites 07:07 PM Site status No bleeding/hematoma - Rt Groin as reported by Roosevelt Treadwell RT (R) at 19:07 tsites 07:08 PM Opsite applied tsites 07:08 PM Plavix, Effient or Brilinta given Yes tsites 07:09 PM Delay to floor No tsites 07:09 PM Patient out of room: 19:09 tsites 07:09 PM Family placed in consult room. tsites 07:09 PM Report given to samir FRIEDMAN Pt taken to ICU Room #3. 19:09 tsites 07:09 PM Lesion found in Mid LAD. Pre Stenosis: 70 Pre PANCHO Flow: 3: Complete and Brisk Flow/Perfusion tsites 07:10 PM Mid/Distal Left Anterior Descending Coronary Artery and diagonal branches with 70% stenosis. If graft is supplying this area, 0 % stenosis tsites Equipment Used Size Length Diameter Item Category ACT Other ACT Other Angio tray pack Other Micro-Introducer Kit Other Terumo [place] sheath Navilyst 3mmJ wire Britetip Guide catheter Inflation kit Other Stablizer Extra Support Guidewire Emerge PTCA Dilatation Catheter Monorail Balloon Promus Element Plus Rx Drug Eluting Stent Jackson pump Other V+Pad Patch Complications Complication None Hemodynamics Pressures Site Systolic/A Wave Diastolic/V Wave Mean AO -1 -1 -1 AO 114 73 91 LV 125 0 10 LV 129 -3 10 AO 108 72 88 AO 120 83 99 AO 72 46 55 AO 104 60 75 AO 133 74 93 Post Procedure Information Blood Pressure: 159/84 mmHg Rhythm: NSR Post procedural instructions were given Closure Device Time Device Success/Fail 10/16/2018 7:12:00 PM Manual Compression Site Checks Time Location Status Staff Sheath In? Note 07:07 PM Rt Groin No bleeding/hematoma Roosevelt Treadwell RT (R) Pulses Time Site Pre-Procedure Post-Procedure Note Bilateral DP & PT 1+ 7:07:00 PM Bilateral DP & PT 1+ Updated by Emani Morales RT (R) on 10/18/2018 8:21:12 AM Emani Morales RT electronically signed on 10/18/2018 8:21:35 AM with status of Final
[2018-10-18 08:30] VITALS: BP 129/80
[2018-10-18] MEDS ORDERED: Aspirin Enteric Coated 81 MG Tablet PO SCH ×2 (09:00)
[2018-10-18] MEDS ORDERED: Metoprolol XL (24 HR) Succ 50 MG TAB.ER.24H PO SCH (09:00)
--- NOTE | 2018-10-18 11:01 | Discharge Summary ---
Orders not resulted at time of discharge: Pending orders 10/16/18 20:00 ECG 12 lead ECG [ECG] Routine Date of Encounter: 10/18/18 Time of Encounter: 10:00 - Discharge Diagnosis (1) ST elevation myocardial infarction (STEMI) Priority: Primary Status: Acute Comments: s/p PCI to RCA Qualifiers: Involved coronary artery: right coronary artery Qualified Code(s): I21.11 - ST elevation (STEMI) myocardial infarction involving right coronary artery (2) Hypertension Priority: Secondary Status: Chronic Qualifiers: Hypertension type: essential hypertension Qualified Code(s): I10 - Essential (primary) hypertension (3) GERD (gastroesophageal reflux disease) Priority: Secondary Status: Acute Qualifiers: Esophagitis presence: without esophagitis Qualified Code(s): K21.9 - Gastro-esophageal reflux disease without esophagitis (4) Tobacco abuse Priority: Secondary Status: Acute (5) Aspirin allergy Priority: Secondary Status: Resolved Comments: s/p successful desensitization - Hospital Course Hospital course: Mr. 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 He was kept in ICU overnight for observation. He had a hx of asa allergy (hives) therefore Allergy (Dr. Collado) was consulted and underwent successful desensitization on 10/17/18 without adverse effects. He remained in ICU until discharge due to no beds available on step-down units. Labs, vitals, and telemetry have been stable since admission. He has been up and ambulating in room with chest pain or discomfort. He is noted to have an existing severe lesion (70% mLAD), discussed with Dr. Riley, will plan to scheduled staged PCI in the outpatient setting. LVEF noted to be mildly reduced, 45%--ACEi started; however patient states he was unable to tolerate in the past due to dizziness. Blood pressure controlled on Toprol XL. Consider addition of ARB in the outpatient setting if needed. Post PCI discharge instructions discussed including importance of uninterrupted DAPT (asa + plavix) for a minimum of 1 year--pt. verbalized understanding. All questions and concerns were addressed prior to discharge. Mr. Diego is being prepped for discharge to home in stable condition. He will follow-up with Dr. Riley in 5-7 days. Time spent discussing smoking cessation with patient: 3 to 10 minutes - Time Spent with Patient Total time spent providing and/or coordinating discharge services: 45 minutes Greater than 30 minutes Specific discharge activities: per post PCI discharge instructions--please provide written copy. No heavy lifting >5 lbs for 1 week. No driving x1 week. Avoid heavy exertion or strenuous activity until seen by Dr. Riley - Discharge Medications Prescriptions: Nitroglycerin 0.4 mg SL Q5MIN PRN #30 tab.subl PRN Reason: Chest Pain Aspirin Enteric Coated [Aspirin EC] 81 mg PO DAILY #30 tablet. Atorvastatin [Lipitor] 40 mg PO HS #30 tablet Clopidogrel [Plavix] 75 mg PO DAILY #30 tablet Home Medications: Metoprolol XL (24 HR) Succ [Toprol Xl] 50 mg PO DAILY 10/16/18 [History] Pantoprazole Sodium [Protonix] 40 mg PO DAILY 10/16/18 [History] Aspirin Enteric Coated [Aspirin EC] 81 mg PO DAILY #30 tablet. 10/18/18 [Rx] Atorvastatin [Lipitor] 40 mg PO HS #30 tablet 10/18/18 [Rx] Clopidogrel [Plavix] 75 mg PO DAILY #30 tablet 10/18/18 [Rx] Nitroglycerin 0.4 mg SL Q5MIN PRN #30 tab.subl 10/18/18 [Rx] Allergies/Adverse Reactions: Allergy/AdvReac Type Severity Reaction Status Date / Time atenolol Allergy Mild Hives Verified 10/17/18 15:33 Date of admission: 10/16/18 18:15 Primary care physician: Nikhil Barraza CNP Consults: 10/16/18 20:00 Consult to Cardiac Rehabilitation-Phase1 [CONS] Routine Comment: Reason for Consult: AMI Call Completed: Yes Consult to Nurse Navigator [CONS] Routine Comment: 10/17/18 10:06 Consult to Allergy/Immunology [CONS] Routine Consulting Provider: [facility] Reason for Consult: asa desensitization Time Notified: 10:07 Call Completed: Yes Discharging clinician: Genie Marie Anticipated date of discharge: 10/18/18 Physical Examination Vital Signs, Last 4 Hours Temp Pulse Resp BP Pulse Ox 10/18/18 09:14 97.8 F 10/18/18 08:00 100 20 129/80 100 General: Conversant, No Apparent Distress HEENT: Atraumatic, Normocephaly, Mucus Membranes Moist Neck: No JVD, Normal carotid pulses Cardiac: Reg Rate and Rhythm, Normal S1 and S2, No Murmur Lungs: Normal Breath Sounds, No Wheeze, Rales, Rhonchi Neuro: Alert and responsive, No focal deficits noted Abdomen: Soft, Non-Tender Skin: No rashes noted on visualized skin Musculoskeletal: No Chest Wall Tenderness Extremities: No Clubbing, No Cyanosis, No Edema, Normal Pulses Other: right groin cath site: soft, no hematoma, bleeding or oozing noted at site. - Patient Status Disposition: Home, Self-Care Condition: Good Functional capacity at discharge: independent ambulation Overall status at discharge: patient is progressing back to baseline - Discharge Instructions Follow Up With: Nikhil Barraza, JAZZY [Primary Care Provider] - Anthony Riley DO [Partnered Physician] - Additional Instructions: RISK FACTORS: STOP SMOKING: If you smoke, STOP. Smoking or tobacco use significantly increases your risk of heart disease because nicotine causes the arteries to narrow or constrict. It also causes fats to stick to the artery. Your chances of having a heart attack are greatly increased if you continue to smoke. For more information, call the education line for smoking cessation 8-209-JNHDQNX EAT A LOW FAT/CHOLESTEROL/SODIUM DIET: This diet may help reduce your chances of having a heart attack. LIFTING: Avoid lifting anything more than 10 pounds for 5-7 days Prior to straining, laughing, sneezing and/or coughing, apply manual pressure directly over insertion site. ACTIVITY: You may walk or climb stairs as tolerated You can resume sexual activity as tolerated In general, you are encouraged to engage in a minimum of 30 minutes or more of moderate intensity physical activity, such as brisk walking, daily or at least 3-4 times weekly BATHING Do not submerge the site into water (bath tub, hot tub, swimming pool) for 1 week. This can be a source for infection into the blood stream. You may shower after 24 hours SITE CARE: After 24 hours, you may remove the dressing and leave the site open to air. Keep the site clean and dry. Clean gently and pat dry. You can expect bruising and tenderness that gradually resolve within a week or two. Return to work as instructed per your physician Resume driving as instructed per physician Keep all scheduled follow up appointments Resume medications as instructed IMPORTANT: If prescribed a Platelet Aggregation Inhibitor such as, Plavix, Brilinta or Effient: Duration of therapy is minimum one year These medications are often used in combination with Aspirin in prevention of future heart attacks Never discontinue unless consult with your Dusting And Brushing Machine Operator STROKE (CVA) Risk factors for a stroke are: Age, cigarette smoking, diabetes, excessive alcohol consumption, family history, high blood pressure, overweight, physical inactivity, prior stroke, heart attack, diagnosis of carotid artery stenosis or other artery disease. Warning signs: Sudden numbness or weakness of the face, arm or leg; especially on one side of the body, sudden confusion, trouble speaking or understanding, sudden trouble seeing in one or both eyes, sudden trouble walking, dizziness, loss of balance or coordination, sudden severe headache with no cause. Call 911 or go to the Emergency Room. CONGESTIVE HEART FAILURE: If you have been diagnosed with Congestive Heart Failure (CHF) and your symptoms return, make an appointment with your physician Weigh yourself daily. Notify your physician if you have a weight gain of two or more pounds in one day or five or more pounds in one week. If you experience any difficulty breathing, please call 911 BLEEDING: Although the risk of bleeding is minimal, it can happen. If you have any bleeding from the site, apply firm pressure above the puncture site for 10-15 minutes. If the bleeding does not stop, continue manual pressure and call 911 Contact your physician if: You develop a fever greater than 101 degrees Fahrenheit Your site becomes reddened or has any drainage You have an increase in pain or burning at the site or if a large knot forms at the site. If you experience chest pain, shortness of breath, dizziness, or extreme tiredness, stop the activity and rest. Please notify your physicians office if you experience any of these symptoms and they are not relieved by rest please call 911! - Diet and Activity Activity: increase activity as tolerated, return to work once cleared by your PCP/specialist, other (avoid strenuous activity or heavy exertion until seen by Dr. Riley at follow-up) Diet: low fat, low cholesterol, low salt diet - VTE Reasons for not Prescribing Prophylaxis: Not indicated-Anticoagulated or INR therapeutic
== END 2018-10-18 12:15 | disposition home or self-care (01) | DRG 174 ==
LOC: EMEROOARM 16:11 → ICNU 18:20 → EMEROOARM 18:30 → ICNU 18:54
PROVIDERS: ADMIT Internal Medicine Cardiovascular Disease; ATTEND Internal Medicine Cardiovascular Disease

== ENCOUNTER 2020-07-20 23:07 | Observation (INO) ==
[2020-07-20] MEDS ORDERED: 0.9 % Sodium Chloride 1,000 ML IVC ONE (23:32)
[2020-07-20] MEDS ORDERED: Aspirin 81 MG TAB.CHEW PO SCH (23:45)
[2020-07-20 23:57] LABS: Basophils # 0.1 K/mcL (0.0-0.2); Basophils % 0.4 %; Eosinophils # 0.1 K/mcL (0.0-0.6); Eosinophils % 1.2 %; Hematocrit 49.4 % (37.5-50.1); Hemoglobin 16.2 g/dL (12.9-16.9); Immature Granulocytes % 0.3 % (0-4); Lymphocytes % 25.9 %; Mean Corpuscular HGB Conc 32.8 g/dL (31.6-35.5); Mean Corpuscular Hemoglobin 30.7 pg (28.0-33.3); Mean Corpuscular Volume 93.7 fL (83.0-100.0); Mean Platelet Volume 8.8 fL (9.4-12.4); Monocytes # 1.1 K/mcL (0.0-1.3); Monocytes % 9.7 %; Neutrophils # 7.2 K/mcL (1.6-8.9); Platelet Count 420 K/mcL (140-400); Red Blood Count 5.27 M/mcL (4.19-5.50); Red Cell Distribution Width 12.3 % (11.5-14.5); Segmented Neutrophils % 62.5 %; White Blood Count 11.5 K/mcL (4.3-11.1)
[2020-07-21 00:18] LABS: Alanine Aminotransferase 59 Units/L (7-52); Albumin 4.7 g/dL (3.5-5.7); Albumin/Globulin Ratio 1.3 (1.1-2.2); Alkaline Phosphatase 93 Units/L (34-104); Aspartate Amino Transferase 39 Units/L (13-39); BUN/Creatinine Ratio 17 (6-26); Bilirubin,Indirect 0.5 mg/dL (0.0-1.0); Bilirubin,Total 0.5 mg/dL (0.3-1.0); Blood Urea Nitrogen 16 mg/dL (6-20); Calcium 9.7 mg/dL (8.6-10.3); Carbon Dioxide 23 mEq/L (23-29); Chloride 99 mEq/L (98-107); Globulin 3.7 g/dL (2.4-3.5); Glucose 108 mg/dL (70-105); Lipase 65 Units/L (11-82); Osmolality,Calculated 284 (280-300); Potassium 4.3 mEq/L (3.5-5.1); Sodium 136 mEq/L (136-145); Total Protein 8.4 g/dL (6.4-8.9); Troponin I < 0.03 ng/mL (< 0.04); eGFR For African Americans > 60 (> 60); eGFR For Non-African Americans > 60 (> 60)
[2020-07-21] MEDS ORDERED: Ondansetron 4 MG/2 ML VIAL IVP PRN (01:46)
[2020-07-21] MEDS ORDERED: Naloxone 0.4 MG/ML INJ IVP PRN (01:46)
[2020-07-21] MEDS ORDERED: Ringers Solution, Lactated 1,000 ML IVC SCH (02:00)
[2020-07-21] MEDS ORDERED: *HR* LORazepam 2 MG/ML VIAL IVP ONE ×2 (02:58→10:25)
[2020-07-21 05:15] LABS: Basophils % 0.5 %; Eosinophils # 0.2 K/mcL (0.0-0.6); Eosinophils % 1.7 %; Hematocrit 45.6 % (37.5-50.1); Immature Granulocytes % 0.2 % (0-4); Lymphocytes % 34.6 %; Mean Corpuscular Hemoglobin 30.4 pg (28.0-33.3); Mean Platelet Volume 8.8 fL (9.4-12.4); Monocytes # 0.6 K/mcL (0.0-1.3); Monocytes % 7.3 %; Neutrophils # 4.8 K/mcL (1.6-8.9); Platelet Count 347 K/mcL (140-400); Red Cell Distribution Width 12.3 % (11.5-14.5); Segmented Neutrophils % 55.7 %; White Blood Count 8.7 K/mcL (4.3-11.1)
[2020-07-21 05:19] LABS: INR 1.1; Prothrombin Time 12.3 Seconds (9.4-12.1)
[2020-07-21 05:21] LABS: Hemoglobin 14.6 g/dL (12.9-16.9)
[2020-07-21 05:38] LABS: Alanine Aminotransferase 46 Units/L (7-52); Albumin 4.1 g/dL (3.5-5.7); Albumin/Globulin Ratio 1.3 (1.1-2.2); Alkaline Phosphatase 84 Units/L (34-104); Aspartate Amino Transferase 25 Units/L (13-39); BUN/Creatinine Ratio 18 (6-26); Bilirubin,Total 0.5 mg/dL (0.3-1.0); Blood Urea Nitrogen 15 mg/dL (6-20); Calcium 9.2 mg/dL (8.6-10.3); Carbon Dioxide 25 mEq/L (23-29); Chloride 102 mEq/L (98-107); Chol/HDL Ratio 5.4 (0-4.9); Cholesterol 167 mg/dL (< 200); Globulin 3.1 g/dL (2.4-3.5); Glucose 101 mg/dL (70-105); HDL Cholesterol 31 mg/dL (40-59); LDL Cholesterol,Calculated 98 mg/dL (< 100); Magnesium 1.9 mg/dL (1.6-2.6); Osmolality,Calculated 285 (280-300); Phosphorous 4.4 mg/dL (2.7-4.5); Sodium 137 mEq/L (136-145); Total Protein 7.2 g/dL (6.4-8.9); Triglycerides 188 mg/dL (< 150); Troponin I < 0.03 ng/mL (< 0.04); eGFR For African Americans > 60 (> 60); eGFR For Non-African Americans > 60 (> 60)
[2020-07-21] MEDS: *HR* Enoxaparin 40 MG/0.4 ML SYRINGE SQ SCH (05:49)
[2020-07-21] MEDS: *HR* LORazepam 0.5 MG TABLET PO SCH ×2 (08:11→20:27)
[2020-07-21] MEDS ORDERED: Aspirin Enteric Coated 81 MG Tablet PO SCH (09:00)
[2020-07-21] MEDS ORDERED: Metoprolol XL (24 HR) Succ 50 MG TAB.ER.24H PO SCH (09:00)
[2020-07-21] MEDS ORDERED: Perflutren Lipid Microsphere 1.3 ML in 0.9 % Sodium Chloride 8.7 ML IVP PRN (09:39)
[2020-07-21] MEDS ORDERED: Aspirin 81 MG TAB.CHEW PO ONE (23:32)
[2020-07-22] MEDS: *HR* Enoxaparin 40 MG/0.4 ML SYRINGE SQ SCH (05:14)
[2020-07-22 07:00] VITALS: BP 145/91
[2020-07-22] MEDS ORDERED: NON-FORMULARY MEDICATION 1 EACH EACH (Omeprazole 40 MG) PO SCH (09:00)
== END 2020-07-22 11:19 | disposition home or self-care (01) ==
LOC: 3BNU 23:07 → EMEROOARM 23:07 → 3BNU 07-21 01:04
PROVIDERS: ADMIT Family Medicine; ATTEND Family Medicine

== ENCOUNTER 2021-05-17 07:05 | Inpatient (IN) ==
[2021-05-17] MEDS ORDERED: *HR* Metoprolol 5 MG/5 ML VIAL IVP ONE (07:25)
[2021-05-17 07:54] LABS: Basophils # 0.1 K/mcL (0.0-0.2); Basophils % 0.5 %; Eosinophils # 0.4 K/mcL (0.0-0.6); Eosinophils % 4.3 %; Hematocrit 46.2 % (37.5-50.1); Hemoglobin 15.4 g/dL (12.9-16.9); Immature Granulocytes % 0.3 % (0-4); Lymphocytes # 3.9 K/mcL (0.6-4.6); Lymphocytes % 39.4 %; Mean Corpuscular HGB Conc 33.3 g/dL (31.6-35.5); Mean Corpuscular Volume 93.1 fL (83.0-100.0); Mean Platelet Volume 9.1 fL (9.4-12.4); Monocytes # 0.9 K/mcL (0.0-1.3); Monocytes % 9.5 %; Neutrophils # 4.5 K/mcL (1.6-8.9); Platelet Count 376 K/mcL (140-400); Red Blood Count 4.96 M/mcL (4.19-5.50); Red Cell Distribution Width 12.7 % (11.5-14.5); White Blood Count 9.9 K/mcL (4.3-11.1)
[2021-05-17] MEDS: Aspirin 81 MG TAB.CHEW PO ONE ×2 (08:01→08:04)
[2021-05-17 08:23] LABS: BUN/Creatinine Ratio 15 (6-26); Blood Urea Nitrogen 14 mg/dL (6-20); Calcium 10.1 mg/dL (8.6-10.3); Carbon Dioxide 23 mEq/L (23-29); Chloride 105 mEq/L (98-107); Glucose 148 mg/dL (70-105); Osmolality,Calculated 291 (280-300); Potassium 3.8 mEq/L (3.5-5.1); Sodium 139 mEq/L (136-145); Troponin I < 0.03 ng/mL (< 0.04); eGFR For African Americans > 60 (> 60); eGFR For Non-African Americans > 60 (> 60)
[2021-05-17 08:49] LABS: Prothrombin Time 11.8 Seconds (9.4-12.1)
[2021-05-17] MEDS ORDERED: *HR* LORazepam 1 MG TABLET PO ONE (09:27)
[2021-05-17] MEDS ORDERED: Acetaminophen 325 MG TABLET PO PRN (11:14)
[2021-05-17] MEDS ORDERED: Ondansetron 4 MG/2 ML VIAL IVP PRN (11:14)
[2021-05-17] MEDS ORDERED: Melatonin 3 MG TABLET PO PRN (11:14)
[2021-05-17] MEDS: Metoprolol XL (24 HR) Succ 50 MG TAB.ER.24H PO SCH (12:36)
[2021-05-17] MEDS ORDERED: *HR* LORazepam 2 MG/ML VIAL IVP ONE (21:00)
[2021-05-18] MEDS ORDERED: *HR* LORazepam 2 MG/ML VIAL IVP ONE ×2 (04:10→23:59)
[2021-05-18] MEDS: *HR* Enoxaparin 40 MG/0.4 ML SYRINGE SQ SCH (05:34)
[2021-05-18 06:04] LABS: Estimated Average Glucose 146 mg/dl; Hemoglobin A1C 6.7 %
[2021-05-18 06:06] LABS: Hematocrit 45.1 % (37.5-50.1); Mean Corpuscular HGB Conc 33.3 g/dL (31.6-35.5); Mean Corpuscular Hemoglobin 31.1 pg (28.0-33.3); Mean Corpuscular Volume 93.6 fL (83.0-100.0); Mean Platelet Volume 8.9 fL (9.4-12.4); Platelet Count 345 K/mcL (140-400); Red Blood Count 4.82 M/mcL (4.19-5.50); Red Cell Distribution Width 12.8 % (11.5-14.5); White Blood Count 8.5 K/mcL (4.3-11.1)
[2021-05-18 06:30] LABS: BUN/Creatinine Ratio 18 (6-26); Blood Urea Nitrogen 14 mg/dL (6-20); Calcium 9.7 mg/dL (8.6-10.3); Carbon Dioxide 25 mEq/L (23-29); Chloride 104 mEq/L (98-107); Chol/HDL Ratio 5.7 (0-4.9); Cholesterol 170 mg/dL (< 200); Glucose 110 mg/dL (70-105); HDL Cholesterol 30 mg/dL (40-59); LDL Cholesterol,Calculated 98 mg/dL (< 100); Osmolality,Calculated 289 (280-300); Potassium 3.9 mEq/L (3.5-5.1); Sodium 139 mEq/L (136-145); Triglycerides 210 mg/dL (< 150); eGFR For African Americans > 60 (> 60); eGFR For Non-African Americans > 60 (> 60)
[2021-05-18] MEDS: Aspirin Enteric Coated 81 MG Tablet PO SCH (08:39)
[2021-05-18] MEDS: Metoprolol XL (24 HR) Succ 50 MG TAB.ER.24H PO SCH ×2 (08:39→20:38)
[2021-05-18] MEDS ORDERED: *HR* LORazepam 0.5 MG TABLET PO SCH (09:00)
[2021-05-18] MEDS: clonazePAM 0.5 MG TABLET PO SCH (20:39)
[2021-05-19] MEDS: *HR* Enoxaparin 40 MG/0.4 ML SYRINGE SQ SCH (06:07)
[2021-05-19 06:15] LABS: Basophils # 0.1 K/mcL (0.0-0.2); Basophils % 0.7 %; Eosinophils # 0.3 K/mcL (0.0-0.6); Eosinophils % 3.1 %; Hematocrit 45.6 % (37.5-50.1); Immature Granulocytes % 0.2 % (0-4); Lymphocytes # 3.1 K/mcL (0.6-4.6); Lymphocytes % 34.5 %; Mean Corpuscular HGB Conc 32.9 g/dL (31.6-35.5); Mean Corpuscular Hemoglobin 31.1 pg (28.0-33.3); Mean Corpuscular Volume 94.6 fL (83.0-100.0); Mean Platelet Volume 9.1 fL (9.4-12.4); Monocytes # 0.7 K/mcL (0.0-1.3); Monocytes % 8.3 %; Neutrophils # 4.8 K/mcL (1.6-8.9); Platelet Count 304 K/mcL (140-400); Red Blood Count 4.82 M/mcL (4.19-5.50); Red Cell Distribution Width 12.5 % (11.5-14.5); Segmented Neutrophils % 53.2 %
[2021-05-19 08:04] LABS: BUN/Creatinine Ratio 22 (6-26); Blood Urea Nitrogen 17 mg/dL (6-20); Calcium 9.6 mg/dL (8.6-10.3); Carbon Dioxide 20 mEq/L (23-29); Chloride 105 mEq/L (98-107); Glucose 92 mg/dL (70-105); Osmolality,Calculated 289 (280-300); Potassium 4.1 mEq/L (3.5-5.1); Sodium 139 mEq/L (136-145); eGFR For African Americans > 60 (> 60); eGFR For Non-African Americans > 60 (> 60)
[2021-05-19] MEDS: clonazePAM 0.5 MG TABLET PO SCH (08:29)
[2021-05-19] MEDS: Metoprolol XL (24 HR) Succ 50 MG TAB.ER.24H PO SCH ×2 (08:29→20:55)
[2021-05-19] MEDS: Aspirin Enteric Coated 81 MG Tablet PO SCH (08:29)
[2021-05-19] MEDS ORDERED: *HR* LORazepam 2 MG/ML VIAL IVP ONE (08:42)
[2021-05-19] MEDS ORDERED: *HR* Heparin 10,000 UNIT/10 ML VIAL ONE (09:52)
[2021-05-19] MEDS ORDERED: Nitroglycerin 1,000 MCG/5 ML VIAL IV ONE (09:53)
[2021-05-19] MEDS ORDERED: ISOVUE-370 200 ML INFUS..BTL ONE (09:53)
[2021-05-19] MEDS ORDERED: Heparin 1,000 UNITS/500 mL 500 ML ONE (09:53)
[2021-05-19] MEDS ORDERED: 0.9 % Sodium Chloride 2,000 ML ONE (09:53)
[2021-05-19] MEDS ORDERED: *HR* Midazolam HCl 2 MG/2 ML VIAL ONE (10:11)
[2021-05-19] MEDS ORDERED: *HR* FentaNYL (PF) 100 MCG/2 ML VIAL ONE (10:12)
[2021-05-19] MEDS ORDERED: *HR* LORazepam 1 MG TABLET PO PRN (14:06)
[2021-05-19] MEDS ORDERED: Perflutren Lipid Microsphere 1.3 ML in 0.9 % Sodium Chloride 8.7 ML IVP PRN (14:53)
[2021-05-20] MEDS ORDERED: *HR* LORazepam 2 MG/ML VIAL IVP ONE (00:06)
[2021-05-20] MEDS: *HR* Enoxaparin 40 MG/0.4 ML SYRINGE SQ SCH (05:25)
[2021-05-20 07:26] VITALS: O2SAT 96
[2021-05-20] MEDS: Aspirin Enteric Coated 81 MG Tablet PO SCH (07:55)
[2021-05-20] MEDS: Metoprolol XL (24 HR) Succ 50 MG TAB.ER.24H PO SCH (07:55)
[2021-05-20 08:41] LABS: Basophils # 0.1 K/mcL (0.0-0.2); Basophils % 0.6 %; Eosinophils # 0.2 K/mcL (0.0-0.6); Eosinophils % 2.7 %; Hematocrit 48.5 % (37.5-50.1); Hemoglobin 15.6 g/dL (12.9-16.9); Immature Granulocytes % 0.3 % (0-4); Lymphocytes % 33.9 %; Mean Corpuscular HGB Conc 32.2 g/dL (31.6-35.5); Mean Corpuscular Hemoglobin 30.5 pg (28.0-33.3); Mean Corpuscular Volume 94.9 fL (83.0-100.0); Mean Platelet Volume 8.8 fL (9.4-12.4); Monocytes # 0.7 K/mcL (0.0-1.3); Neutrophils # 4.8 K/mcL (1.6-8.9); Platelet Count 328 K/mcL (140-400); Red Blood Count 5.11 M/mcL (4.19-5.50); Red Cell Distribution Width 12.5 % (11.5-14.5); Segmented Neutrophils % 54.5 %; White Blood Count 8.9 K/mcL (4.3-11.1)
[2021-05-20 09:06] LABS: BUN/Creatinine Ratio 20 (6-26); Blood Urea Nitrogen 17 mg/dL (6-20); Calcium 9.7 mg/dL (8.6-10.3); Carbon Dioxide 26 mEq/L (23-29); Chloride 104 mEq/L (98-107); Glucose 106 mg/dL (70-105); Osmolality,Calculated 288 (280-300); Sodium 138 mEq/L (136-145); eGFR For African Americans > 60 (> 60); eGFR For Non-African Americans > 60 (> 60)
[2021-05-20 11:35] VITALS: BP 135/107; PULSE 89; TEMP 97.7
== END 2021-05-20 12:50 | disposition home or self-care (01) | DRG 191 ==
LOC: EMEROOARM 07:05 → CDU 07:05 → SUATTDRO 09:58 → CDU 10:40 → 2NENU 20:57
PROVIDERS: ADMIT Internal Medicine; ATTEND Family Medicine